=== PATIENT | female | born 1940 | race Caucasian/White ===

== ENCOUNTER → 2017-04-17 | Outpatient (CLI) | payer OTHER ==
[~2017-04-17] MED LIST: AMIT100T PO; GABA100C PO; OMEP-110 PO; OXYB5TAB7 PO; OXYC10TA6 PO; ZOLP10TA PO
[2017-04-17 12:36] LABS: CHLORIDE 105 mmol/L (98-107)
[2017-04-17 12:37] LABS: ANION GAP 7 mmol/L (5-15); CALCIUM 8.5 mg/dL (8.5-10.1); CREATININE 0.61 mg/dL (0.55-1.02)
== END | disposition home or self-care (01) ==
LOC: STAR 11:15
PROVIDERS: ATTEND Surgery
DX: Z01.818 Encounter for other preprocedural examination (principal); I83.11 Varicose veins of right lower extremity with inflammation
CPT/HCPCS: 36415; 80048; 93005

== ENCOUNTER 2017-04-21 10:35 | Day surgery (SDC) | payer OTHER ==
[~2017-04-21] VITALS: Ht 165.1 cm; Wt 56.4 kg
[2017-04-21] MEDS ORDERED: LACTATED RINGERS 1,000 ML IV SCH (11:44)
[2017-04-21 11:46] VITALS: BP 165/77
[2017-04-21] MEDS ORDERED: EPINEPHRINE 1 MG/ML, 1ML ONE (12:46)
[2017-04-21] MEDS ORDERED: LIDOCAINE 1%, 50ML ONE ×2 (12:46→13:45)
[2017-04-21] MEDS ORDERED: HEPARIN 1,000 UNITS/ML, 10ML ONE (12:46)
[2017-04-21] MEDS ORDERED: MEPERIDINE/PF 25MG/0.5ML IVPush PRN (13:00)
[2017-04-21] MEDS ORDERED: ONDANSETRON 2MG/ML, 2ML IVPush PRN (13:00)
[2017-04-21] MEDS ORDERED: PROMETHAZINE 25 MG/ML, 1ML IV PRN (13:00)
[2017-04-21] MEDS ORDERED: ACETAMINOPHEN 325 MG TABLET PO PRN (13:00)
[2017-04-21] MEDS ORDERED: LABETALOL 5MG/ML, 20ML IV PRN (13:00)
[2017-04-21] MEDS ORDERED: hydrALAzine 20 MG/ML, 1ML IV PRN (13:00)
[2017-04-21] MEDS ORDERED: OXYcodone 5 MG/5 ML ORAL.SOL UDC PO PRN (13:00)
[2017-04-21] MEDS ORDERED: HYDROmorphone 1 MG/ML, 1ML IV PRN (13:00)
[2017-04-21] MEDS ORDERED: PROPOFOL 10 MG/ML, 20ML ONE (13:14)
[2017-04-21] MEDS ORDERED: ROCURONIUM 10 MG/ML,10ML ONE (13:14)
[2017-04-21] MEDS ORDERED: NEOSTIGMINE 1 MG/ML, 10ML ONE (13:14)
[2017-04-21] MEDS ORDERED: DEXAMETHASONE 4 MG/ML, 1ML ONE (13:14)
[2017-04-21] MEDS ORDERED: GLYCOPYRROLATE 0.2MG/1ML, 5ML ONE (13:14)
[2017-04-21] MEDS ORDERED: CEFAZOLIN 1,000 MG ONE (13:14)
[2017-04-21] MEDS ORDERED: ACETAMINOPHEN 650 MG/20.3 ML UDC ONE (15:14)
[2017-04-21] MEDS ORDERED: OXYcodone 5 MG/5 ML ORAL.SOL UDC ONE (15:15)
[2017-04-21] MEDS ORDERED: FENTANYL PF 100 MCG/2ML ONE (15:15)
[2017-04-21] MEDS: FENTANYL PF 100 MCG/2ML IV PRN ×2 (15:19→15:24)
[2017-04-21] MEDS ORDERED: OXYcodone/APAP 5/325MG TABLET ONE (18:12)
[2017-04-21] MEDS ORDERED: OXYcodone/APAP 5/325MG TABLET PO PRN (18:30)
== END 2017-04-21 18:55 ==
LOC: OUT 10:35
PROVIDERS: ATTEND Surgery
DX: I83.891 Varicose veins of right lower extremity with other complications (principal); I87.8 Other specified disorders of veins; J44.9 Chronic obstructive pulmonary disease, unspecified; K21.9 Gastro-esophageal reflux disease without esophagitis; Z88.8 Allergy status to other drugs, medicaments and biological substances
CPT/HCPCS: 37718; 37765; C1888; C1894; J0171; J0690; J1100; J1644; J2250; J2405; J2704; J2710; J3010; J3490; J7120

== ENCOUNTER 2019-05-05 14:00 | Emergency (ER) | payer MEDICARE, OTHER ==
[~2019-05-05] VITALS: Ht 166.4 cm; Wt 50.7 kg
[~2019-05-05 14:00] MED LIST changes: +OXYB5TAB10 PO; -OXYB5TAB7 PO
[2019-05-05 14:08] VITALS: BP 169/64
--- NOTE | 2019-05-05 14:55 | NUR ---
tube rebuilder: Pt ambulatory to ED room 24 from lobby at this time.
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
--- NOTE | 2019-05-05 15:33 | NUR ---
PT TAKEN TO IMAGING AT THIS TIME
[2019-05-05 15:44] LABS: ALBUMIN 3.5 g/dL (3.4-5.0); ANION GAP 6 mmol/L (5-15); CALCIUM 8.9 mg/dL (8.5-10.1); CHLORIDE 107 mmol/L (98-107); CREATININE 0.58 mg/dL (0.55-1.02)
[2019-05-05] MEDS ORDERED: DIPH,PERTUSS(ACELL),TET VAC/PF 0.5 ML IM-VACC ONE ×2 (16:28→16:30)
[2019-05-05 17:38] LABS: MEAN CORPUSCULAR HEMOGLOBIN 22.6 pg (27.0-34.8); MEAN CORPUSCULAR VOLUME 73.1 fL (80-100); MEAN PLATELET VOLUME 8.1 fL (7.4-10.4); PLATELET COUNT 201 x10^3/uL (130-400); RED BLOOD COUNT 3.99 x10^6/uL (3.82-5.3); RED CELL DISTRIBUTION WIDTH 16.1 % (9.6-15.2)
[2019-05-05 17:39] LABS: BASOPHILS # (AUTO) 0.01 x10^3/uL (0-0.1); BASOPHILS % (AUTO) 0 % (0-1); EOSINOPHILS # (AUTO) 0.13 x10^3/uL (0-0.4); EOSINOPHILS % (AUTO) 2 % (1-7); LYMPHOCYTES # (AUTO) 1.38 x10^3/uL (1-3.4); LYMPHOCYTES % (AUTO) 23 % (22-44); MD SCAN; MONOCYTES # (AUTO) 0.39 x10^3/uL (0.2-0.8); MONOCYTES % (AUTO) 6 % (2-9); NEUTROPHILS % (AUTO) 68 % (42-75)
== END 2019-05-05 18:33 | disposition home or self-care (01) ==
LOC: ED 16:00
DX: S80.871A Other superficial bite, right lower leg, initial encounter (principal); Z90.49 Acquired absence of other specified parts of digestive tract; Z90.710 Acquired absence of both cervix and uterus; W55.01XA Bitten by cat, initial encounter; Y93.89 Activity, other specified; Y92.098 Other place in other non-institutional residence as the place of occurrence of the external cause; Y99.8 Other external cause status
CPT/HCPCS: 36415; 80048; 82040; 85025; 90471; 90715; 99284

== ENCOUNTER 2020-03-07 00:09 | Emergency (ER) | payer MEDICARE ==
--- NOTE | 2020-03-07 00:39 | NUR ---
PT SLEEPING ON CART, RR EVEN NON LABORED. WILL CTM.
--- NOTE | 2020-03-07 00:57 | NUR ---
MS AT FOR RADHIKAAL.
[2020-03-07] MEDS ORDERED: SODIUM CHLORIDE FLUSH 10ML SYR IVF ONE (01:00)
--- NOTE | 2020-03-07 01:21 | NUR ---
cxry done portable, labs drawn, and iv started to right hand with 20g x1 attempt. cdi, no swelling or redness.
[2020-03-07 01:22] LABS: BASOPHILS % (AUTO) 0 % (0-1); EOSINOPHILS % (AUTO) 0 % (1-7); LYMPHOCYTES % (AUTO) 8 % (22-44); MEAN CORPUSCULAR HGB CONC 31.6 g/dL (32.4-35.8); MEAN PLATELET VOLUME 8.7 fL (7.4-10.4); MONOCYTES % (AUTO) 8 % (2-9); NEUTROPHILS % (AUTO) 84 % (42-75); PLATELET COUNT 210 x10^3/uL (130-400); RED BLOOD COUNT 3.45 x10^6/uL (3.82-5.3); RED CELL DISTRIBUTION WIDTH 17.7 % (9.6-15.2)
[2020-03-07 01:25] LABS: MD NO
[2020-03-07 01:30] LABS: ALANINE AMINOTRANSFERASE 15 U/L (12-78); ALBUMIN 2.9 g/dL (3.4-5.0); ANION GAP 4 mmol/L (5-15); CALCIUM 8.4 mg/dL (8.5-10.1); CHLORIDE 105 mmol/L (98-107); CREATININE 0.44 mg/dL (0.55-1.02)
[2020-03-07 01:33] LABS: ALKALINE PHOSPHATASE 83 U/L (45-117); BILIRUBIN,TOTAL 0.4 mg/dL (0.2-1.0); TOTAL PROTEIN 6.6 g/dL (6.4-8.2)
--- NOTE | 2020-03-07 01:43 | NUR ---
(SHAWNA) WOULD LIKE TO BE CALLED WITH updates - [phone]
[2020-03-07 01:52] LABS: MICROSCOPIC NOT IND
[2020-03-07] MEDS ORDERED: POTASSIUM CHLORIDE 20 MEQ TAB.ER.PRT PO ONE (02:00)
--- NOTE | 2020-03-07 02:53 | NUR ---
pt to ct, doing well, urine collected via in and out cath, pt tolerated well. remains on cr monitor. calm and cooperative, no complaint of pain.
--- NOTE | 2020-03-07 02:58 | NUR ---
per pt request, pt's called and updated to her status, and tests being done. he acknowledged understanding and will wait to be updated next when all results are back and his is made aware.
[2020-03-07] MEDS ORDERED: POTASSIUM CHLORIDE 20 MEQ TAB.ER.PRT ONE (03:47)
--- NOTE | 2020-03-07 03:55 | NUR ---
pt and pt's updated as to discharge. meds given to pt and she tolerated well PO meds.
[2020-03-07 04:18] VITALS: BP 120/63
== END 2020-03-07 05:04 | disposition home or self-care (01) ==
LOC: ED 03:00
DX: S09.90XA Unspecified injury of head, initial encounter (principal); D64.9 Anemia, unspecified; E87.6 Hypokalemia; R00.0 Tachycardia, unspecified; M19.90 Unspecified osteoarthritis, unspecified site; Z90.89 Acquired absence of other organs; Z90.49 Acquired absence of other specified parts of digestive tract; Z96.649 Presence of unspecified artificial hip joint; W01.0XXA Fall on same level from slipping, tripping and stumbling without subsequent striking against object, initial encounter; Y93.89 Activity, other specified; Y92.009 Unspecified place in unspecified non-institutional (private) residence as the place of occurrence of the external cause; Y99.8 Other external cause status
CPT/HCPCS: 36415; 70450; 71045; 80053; 81003; 85025; 93005; 99283; 99285